=== PATIENT | male | born 1995 | race Caucasian/White ===

== ENCOUNTER → 2017-02-04 | Outpatient (CLI) | payer BC ==
--- NOTE | 2017-02-04 11:57 | DIAGNOSTIC IMAGING REPORT ---
SCROTAL ULTRASOUND CLINICAL HISTORY: Right scrotal pain. COMPARISON STUDY: None. TECHNIQUE: Grayscale and color and duplex Doppler sonography of the scrotum was performed. FINDINGS: The right testis measures 4.4 x 2.2 x 2.8 cm and the left measures 4.5 x 2.5 x 2.8 cm. There is no testicular mass. Color flow within each testis is symmetric. There is no evidence of epididymitis. IMPRESSION: Normal testicular ultrasound. No evidence of testicular torsion. Electronically signed by: Law Tamayo M.D. 02/04/2017 11:56 AM Dictated Date/Time: 02/04/2017 11:55 AM
== END | disposition home or self-care (01) ==
LOC: C.ULTR 11:22
PROVIDERS: ATTEND Family Medicine
DX: N50.811 Right testicular pain (principal)